=== PATIENT | male | born 1960 ===

== ENCOUNTER 2024-02-09 13:48 | Inpatient (IN) | payer OTHER ==
[2024-02-09 15:17] VITALS: BMI 18.3
[2024-02-09] MEDS ORDERED: POLYETHYLENE GLYCOL (HEALTHYLAX) 3350 17 GM PACKET PO PRN (16:56)
[2024-02-09] MEDS ORDERED: BISMUTH SUBSALICYLATE 524 MG/30 ML PO PRN (16:56)
[2024-02-09] MEDS ORDERED: LOPERAMIDE HCL 2 MG CAPSULE PO PRN (16:56)
[2024-02-09] MEDS ORDERED: guaiFENesin 600 MG TABLET.ER (FP) PO PRN (16:56)
[2024-02-09] MEDS ORDERED: IBUPROFEN 400 MG TABLET (FP) PO PRN (16:56)
[2024-02-09] MEDS ORDERED: NICOTINE POLACRILEX 2 MG GUM BUC PRN (16:56)
[2024-02-09] MEDS ORDERED: BENZOCAINE/MENTHOL (CHLORASEPTIC ) LOZENGE MM PRN (16:56)
[2024-02-09] MEDS ORDERED: NICOTINE POLACRILEX 2 MG LOZENGE BC PRN (16:56)
[2024-02-09] MEDS ORDERED: NALOXONE HCL 0.4 MG/ML VIAL IM PRN (16:56)
[2024-02-09] MEDS ORDERED: MAGNESIUM HYDROX 2400MG/30ML ORAL SUSPENSION 30 ML CUP PO PRN (16:56)
[2024-02-09] MEDS ORDERED: NALOXONE (NARCAN) HCL 4 MG/0.1 ML SPRAY NS PRN (16:56)
[2024-02-09] MEDS ORDERED: P-EPHED 60MG/TRIPROLIDI 2.5MG TABLET PO PRN (16:56)
[2024-02-09] MEDS ORDERED: ACETAMINOPHEN 325 MG TABLET (FP) PO PRN (16:56)
[2024-02-09] MEDS ORDERED: BENZONATATE 200 MG CAPSULE PO PRN (16:56)
[2024-02-09] MEDS: ONDANSETRON *ODT* 4 MG TABLET SL PRN (18:49)
[2024-02-09] MEDS: methaDONE HCL 10 MG TABLET (FOR DETOX USE ONLY) PO ONE (20:21)
[2024-02-09] MEDS: THIAMINE 100 MG TABLET PO SCH (22:43)
[2024-02-09] MEDS: MELATONIN 5 MG TABLETS PO SCH (22:43)
[2024-02-09] MEDS: cloNIDine HCL 0.1 MG TABLET PO PRN (22:44)
[2024-02-10] MEDS: METHOCARBAMOL 500 MG TABLET PO PRN (10:01)
[2024-02-10] MEDS: PRENATAL VITAMINS W/ FOLIC ACID TABLET (FP) PO SCH (10:05)
[2024-02-10 13:21] LABS: HEMATOCRIT 35.8 % (35.4-49); HEMOGLOBIN 11.7 GM/dL (11.7-16.9); MCH 25.9 pg (25.7-33.7); MCHC 32.8 g/dl (32.0-35.9); MEAN CELL VOLUME 78.9 fl (80-96); MEAN PLT VOLUME 8.4 fl (7.5-11.1); PLATELET COUNT 229 10^3/uL (134-434); RBC 4.53 M/mm3 (4.00-5.60); RDW 17.2 % (11.9-15.9); WHITE BLOOD COUNT 4.7 K/mm3 (4.0-10.0)
[2024-02-10 13:56] LABS: CHLORIDE 108 mmol/L (98-107); POTASSIUM 4.3 mmol/L (3.5-5.1); SODIUM 139 mmol/L (136-145)
[2024-02-10 13:58] LABS: ANION GAP 3 mmol/L (4-13); BLOOD UREA NITROGEN 12.2 mg/dL (7-18); CALCIUM 8.9 mg/dL (8.5-10.1); CO2 29 mmol/L (21-32)
[2024-02-10 13:59] LABS: GLUCOSE,RANDOM 89 mg/dL (74-106)
[2024-02-10 14:02] LABS: CREATININE 0.9 mg/dL (0.55-1.3); SGOT/AST 10 U/L (15-37)
[2024-02-10 14:03] LABS: BILIRUBIN,TOTAL 0.4 mg/dL (0.2-1); TOT PROT 5.4 g/dl (6.4-8.2)
[2024-02-10 14:04] LABS: ALK PHOS 51 U/L (45-117)
[2024-02-10 14:09] LABS: SGPT/ALT 16 U/L (13-61)
[2024-02-11] MEDS: methaDONE HCL 10 MG TABLET (FOR DETOX USE ONLY) PO ONE (09:53)
[2024-02-11] MEDS: DICYCLOMINE HCL 10 MG CAPSULE PO PRN (09:55)
[2024-02-11] MEDS: hydrOXYzine PAMOATE 25 MG CAPSULE (FP) PO PRN (17:19)
[2024-02-11] MEDS: QUEtiapine FUMARATE 50 MG TABLET PO SCH (22:12)
[2024-02-13] MEDS: MAG HYDROX/AL HYDROX/SIMETH 30 ML UNIT-DOSE CUP PO PRN (00:02)
[2024-02-13] MEDS: methaDONE HCL 10 MG TABLET (FOR DETOX USE ONLY) PO ONE (10:30)
[2024-02-13] MEDS: diazePAM 5 MG TABLET PO PRN (11:44)
[2024-02-14] MEDS: IBUPROFEN 600 MG TABLET (FP) PO PRN (18:03)
[2024-02-15 09:21] VITALS: BP 114/77; PULSE 104; RESP 17; TEMP 98.2
== END 2024-02-15 12:05 | disposition other institution (70) | DRG 773 ==
LOC: YASAS 13:48 → Y6N 18:14
PROVIDERS: ADMIT Allergy & Immunology; ATTEND Surgery
PROC: HZ2ZZZZ Detoxification Services for Substance Abuse Treatment (ICD-10-PCS; principal; 2024-02-09)
DX: F11.23 Opioid dependence with withdrawal (principal); F14.20 Cocaine dependence, uncomplicated; F17.210 Nicotine dependence, cigarettes, uncomplicated; F19.282 Other psychoactive substance dependence with psychoactive substance-induced sleep disorder; F19.24 Other psychoactive substance dependence with psychoactive substance-induced mood disorder; F31.9 Bipolar disorder, unspecified; K21.9 Gastro-esophageal reflux disease without esophagitis; J45.909 Unspecified asthma, uncomplicated
CPT/HCPCS: 36415; 80053; 80305; 80307; 85027; 86780; 87811; 93005; 93010; Q0162

== ENCOUNTER 2024-02-15 12:13 | Inpatient (IN) | payer OTHER ==
[2024-02-15] MEDS ORDERED: BENZONATATE 200 MG CAPSULE PO PRN (13:01)
[2024-02-15] MEDS ORDERED: NALOXONE HCL 0.4 MG/ML VIAL IVPUSH PRN (13:01)
[2024-02-15] MEDS ORDERED: BENZOCAINE/MENTHOL (CHLORASEPTIC ) LOZENGE MM PRN (13:01)
[2024-02-15] MEDS ORDERED: POLYETHYLENE GLYCOL (HEALTHYLAX) 3350 17 GM PACKET PO PRN (13:01)
[2024-02-15] MEDS ORDERED: NICOTINE POLACRILEX 4 MG LOZENGE BC PRN (13:01)
[2024-02-15] MEDS ORDERED: guaiFENesin 600 MG TABLET.ER (FP) PO PRN (13:01)
[2024-02-15] MEDS ORDERED: IBUPROFEN 400 MG TABLET (FP) PO PRN (13:01)
[2024-02-15] MEDS ORDERED: NALOXONE (NARCAN) HCL 4 MG/0.1 ML SPRAY NS PRN (13:01)
[2024-02-15] MEDS ORDERED: NICOTINE POLACRILEX 4 MG GUM BUC PRN (13:01)
[2024-02-15] MEDS ORDERED: LOPERAMIDE HCL 2 MG CAPSULE PO PRN (13:01)
[2024-02-15] MEDS ORDERED: BISMUTH SUBSALICYLATE 524 MG/30 ML PO PRN (13:10)
[2024-02-15] MEDS ORDERED: ONDANSETRON *ODT* 4 MG TABLET SL PRN (13:10)
[2024-02-15] MEDS ORDERED: DICYCLOMINE HCL 10 MG CAPSULE PO PRN (13:10)
[2024-02-15] MEDS: METHOCARBAMOL 500 MG TABLET PO PRN (13:35)
[2024-02-15] MEDS: PANTOPRAZOLE 20 MG TABLET PO SCH (13:35)
[2024-02-15] MEDS: hydrOXYzine PAMOATE 25 MG CAPSULE (FP) PO PRN (13:35)
[2024-02-15] MEDS: THIAMINE 100 MG TABLET PO SCH (21:07)
[2024-02-15] MEDS: SUVOREXANT 5 MG TABLET PO PRN (21:08)
[2024-02-15] MEDS ORDERED: QUEtiapine FUMARATE 50 MG TABLET PO SCH (22:00)
[2024-02-15] MEDS ORDERED: MELATONIN 5 MG TABLETS PO SCH (22:00)
[2024-02-16] MEDS: MAG HYDROX/AL HYDROX/SIMETH 30 ML UNIT-DOSE CUP PO PRN (04:13)
[2024-02-16] MEDS ORDERED: BUPRENORPHINE HCL 150 MCG, BUPRENORPHINE HCL 75 MCG BC PRN (09:18)
[2024-02-16] MEDS: BUPRENORPHINE HCL 150 MCG, BUPRENORPHINE HCL 75 MCG BC ONE (10:31)
[2024-02-16] MEDS: NICOTINE 14 MG/24 HOURS TOPICAL PATCH TD SCH (10:32)
[2024-02-16] MEDS: PANTOPRAZOLE 20 MG TABLET PO SCH (10:32)
[2024-02-16] MEDS: PRENATAL VITAMINS W/ FOLIC ACID TABLET (FP) PO SCH (10:32)
[2024-02-16] MEDS: cloNIDine HCL 0.1 MG TABLET PO ONE (10:32)
[2024-02-17] MEDS ORDERED: BUPRENORPHINE HCL 150 MCG, BUPRENORPHINE HCL 75 MCG BC PRN
[2024-02-17] MEDS: BUPRENORPHINE HCL 150 MCG, BUPRENORPHINE HCL 75 MCG BC SCH (06:02)
[2024-02-17] MEDS: cloNIDine HCL 0.1 MG TABLET PO PRN (15:34)
[2024-02-17] MEDS ORDERED: SUVOREXANT 10 MG TABLET PO PRN (22:00)
[2024-02-17] MEDS: SUVOREXANT 5 MG TABLET PO PRN (23:04)
[2024-02-18] MEDS: BUPRENORPHINE HCL 450 MCG FILM BC SCH (05:45)
[2024-02-18] MEDS: MAGNESIUM HYDROX 2400MG/30ML ORAL SUSPENSION 30 ML CUP PO PRN (05:46)
[2024-02-18] MEDS: IBUPROFEN 600 MG TABLET (FP) PO PRN (10:47)
[2024-02-19] MEDS: BUPRENORPHINE/NALOXONE 4 MG/1 MG FILM PACKET SL SCH (06:08)
[2024-02-19] MEDS: ACETAMINOPHEN 325 MG TABLET (FP) PO PRN (16:40)
[2024-02-20] MEDS: BUPRENORPHINE/NALOXONE 8 MG/2 MG FILM PACKET SL SCH (10:24)
[2024-02-20] MEDS ORDERED: SUVOREXANT 5 MG TABLET PO PRN (22:00)
[2024-02-22 07:05] VITALS: TEMP 97.5
[2024-02-22 09:52] VITALS: BP 101/72; PULSE 104; RESP 16
[2024-02-22] MEDS ORDERED: SUVOREXANT 5 MG TABLET PO PRN (22:00)
== END 2024-02-22 10:36 | disposition home or self-care (01) | DRG 772 ==
LOC: YASAS 12:13 → Y3W 12:14
PROVIDERS: ADMIT Psychiatry & Neurology Pain Medicine; ATTEND Psychiatry & Neurology Pain Medicine
PROC: HZ42ZZZ Group Counseling for Substance Abuse Treatment, Cognitive-Behavioral (ICD-10-PCS; principal; 2024-02-15)
DX: F10.20 Alcohol dependence, uncomplicated (principal); F14.20 Cocaine dependence, uncomplicated; F17.210 Nicotine dependence, cigarettes, uncomplicated; F31.9 Bipolar disorder, unspecified; K21.9 Gastro-esophageal reflux disease without esophagitis

== ENCOUNTER 2025-03-11 11:07 | Inpatient (IN) | payer OTHER ==
[2025-03-11 11:33] VITALS: BMI 17.7
[2025-03-11] MEDS ORDERED: ACETAMINOPHEN 325 MG TABLET (FP) PO PRN (11:52)
[2025-03-11] MEDS ORDERED: guaiFENesin 600 MG TABLET.ER (FP) PO PRN (11:52)
[2025-03-11] MEDS ORDERED: MAG HYDROX/AL HYDROX/SIMETH 30 ML UNIT-DOSE CUP PO PRN (11:52)
[2025-03-11] MEDS ORDERED: MAGNESIUM HYDROX 2400MG/30ML ORAL SUSPENSION 30 ML CUP PO PRN (11:52)
[2025-03-11] MEDS ORDERED: IBUPROFEN 400 MG TABLET (FP) PO PRN (11:52)
[2025-03-11] MEDS ORDERED: BENZOCAINE/MENTHOL (CHLORASEPTIC ) LOZENGE MM PRN (11:52)
[2025-03-11] MEDS ORDERED: NICOTINE POLACRILEX 2 MG GUM BUC PRN (11:52)
[2025-03-11] MEDS ORDERED: BISMUTH SUBSALICYLATE 524 MG/30 ML PO PRN (11:52)
[2025-03-11] MEDS ORDERED: POLYETHYLENE GLYCOL (HEALTHYLAX) 3350 17 GM PACKET PO PRN (11:52)
[2025-03-11] MEDS ORDERED: hydrOXYzine PAMOATE 25 MG CAPSULE (FP) PO PRN (11:52)
[2025-03-11] MEDS ORDERED: LOPERAMIDE HCL 2 MG CAPSULE PO PRN (11:52)
[2025-03-11] MEDS ORDERED: BENZONATATE 200 MG CAPSULE PO PRN (11:52)
[2025-03-11] MEDS ORDERED: NALOXONE (NARCAN) HCL 4 MG/0.1 ML SPRAY NS PRN (11:52)
[2025-03-11] MEDS ORDERED: DICYCLOMINE HCL 10 MG CAPSULE PO PRN (11:52)
[2025-03-11] MEDS ORDERED: ONDANSETRON *ODT* 4 MG TABLET SL PRN (11:52)
[2025-03-11] MEDS ORDERED: BUPRENORPHINE/NALOXONE 0.5 MG/0.125 MG FILM ONE (12:53)
[2025-03-11] MEDS: BUPRENORPHINE/NALOXONE 0.5 MG/0.125 MG FILM SL ONE ×2 (13:07→22:24)
[2025-03-11] MEDS: THIAMINE 100 MG TABLET PO SCH (22:23)
[2025-03-11] MEDS: PANTOPRAZOLE 20 MG TABLET PO SCH (22:23)
[2025-03-11] MEDS: MIRTAZAPINE 15 MG TABLET (FP) PO SCH (22:23)
[2025-03-11] MEDS: MELATONIN 5 MG TABLETS PO SCH (22:28)
[2025-03-12] MEDS: NICOTINE 14 MG/24 HOURS TOPICAL PATCH TD SCH (10:00)
[2025-03-12] MEDS: BUPRENORPHINE/NALOXONE 0.5 MG/0.125 MG FILM SL SCH (10:02)
[2025-03-12] MEDS: PRENATAL VITAMINS W/ FOLIC ACID TABLET (FP) PO SCH (10:03)
[2025-03-12] MEDS: BUDESONIDE/FORMETEROL FUMARATE 160/4.5 mcg INHALER IH SCH (11:05)
[2025-03-12] MEDS: FLU VACC TS2025-26(6MOS UP)/PF 45 MCG/0.5 ML SYRINGE IM ONE (11:06)
[2025-03-12 12:34] LABS: MCHC 31.5 g/dl (32.3-36.5); MEAN CELL VOLUME 83.9 fl (79.0-92.2); MEAN PLT VOLUME 10.7 fl (9.4-12.4); RDW 16.9 % (12.2-16.4)
[2025-03-12 13:51] LABS: GLUCOSE,RANDOM 149.0 mg/dL (74-106)
[2025-03-12 13:52] LABS: TOT PROT 6.4 g/dl (6.4-8.2)
[2025-03-12 13:53] LABS: CO2 21.0 mmol/L (21-32)
[2025-03-12 13:54] LABS: ALK PHOS 81.0 U/L (40-150)
[2025-03-12 13:57] LABS: CREATININE 1.88 mg/dL (0.55-1.3); SGOT/AST 18.0 U/L (5-34); SGPT/ALT 24.0 U/L (0-55)
[2025-03-13] MEDS: BUPRENORPHINE/NALOXONE 2 MG/0.5 MG FILM PACKET SL SCH (09:50)
[2025-03-13] MEDS: IBUPROFEN 600 MG TABLET (FP) PO PRN (09:59)
[2025-03-13] MEDS: METHOCARBAMOL 500 MG TABLET PO PRN (09:59)
[2025-03-13 21:23] VITALS: RESP 16
[2025-03-14] MEDS: BUPRENORPHINE/NALOXONE 4 MG/1 MG FILM PACKET SL SCH (09:27)
[2025-03-15 09:05] VITALS: TEMP 97.6
[2025-03-15] MEDS: BUPRENORPHINE/NALOXONE 8 MG/2 MG FILM PACKET SL SCH (09:55)
[2025-03-15 10:15] VITALS: BP 120/91; PULSE 60
[2025-03-16] MEDS ORDERED: BUPRENORPHINE/NALOXONE 8 MG/2 MG FILM PACKET SL SCH (10:00)
[2025-03-16] MEDS ORDERED: PNEUMOC 20-VAL CONJ-DIP CRM/PF 0.5 ML SYRINGE IM ONE (12:00)
== END 2025-03-15 11:55 | disposition other institution (70) | DRG 773 ==
LOC: SUATTDRO 11:07 → YASAS 11:07 → Y3N 12:55
PROVIDERS: ADMIT Family Medicine; ATTEND Allergy & Immunology
PROC: HZ2ZZZZ Detoxification Services for Substance Abuse Treatment (ICD-10-PCS; principal; 2025-03-11)
DX: F11.23 Opioid dependence with withdrawal (principal); F14.20 Cocaine dependence, uncomplicated; F17.210 Nicotine dependence, cigarettes, uncomplicated; F19.282 Other psychoactive substance dependence with psychoactive substance-induced sleep disorder; F19.24 Other psychoactive substance dependence with psychoactive substance-induced mood disorder; F31.9 Bipolar disorder, unspecified; F43.10 Post-traumatic stress disorder, unspecified; J45.909 Unspecified asthma, uncomplicated; K21.9 Gastro-esophageal reflux disease without esophagitis
CPT/HCPCS: 36415; 80053; 80307; 85027; 86780; 87811; 93005; 93010